=== PATIENT | male | born 1955 | race Caucasian/White ===

== ENCOUNTER 2020-03-03 10:15 | Day surgery (SDC) | payer MEDICARE ==
[~2020-03-03 10:15] MED LIST: PERCOCET 10/31 COMBO PO; TRAMADOL HCL50 MG PO
[2020-03-03 10:49] LABS: HEMOGLOBIN 14.5 g/dl (14.0-18.0); IMMATURE GRANULOCYTES 0.3 % (0.0-5.0); MEAN CORPUSCULAR HGB 29.7 pG CALC (26.0-32.0); MEAN CORPUSCULAR HGB CONC 32.2 g/dL CAL (32.0-36.0); NEUT# 3.47 thou/uL (1.82-7.42); RED BLOOD COUNT 4.89 mill/uL (4.70-6.10)
[2020-03-03 11:10] LABS: ALBUMIN 4.5 g/dL (3.2-5.0); ALKALINE PHOSPHATASE 140 u/l (38-126); ANION GAP 11 (6-22 (CALC)); BILIRUBIN, TOTAL 0.6 mg/dL (0.0-1.4); BUN 13 mg/dL (8-23); BUN/CREATININE RATIO 19 (12-20 (CALC)); CARBON DIOXIDE 28 mmol/l (22-30); CHLORIDE 102 mmol/l (95-108); CREATININE 0.7 mg/dL (0.7-1.3); GFR > 60 ML/MIN (>=60 (CALC)); GFR FOR AFR.AMER. > 60 ML/MIN (>=60 (CALC)); POTASSIUM 4.3 mmol/l (3.5-5.1); SGOT/AST 36 u/l (19-48); SODIUM 137 mmol/l (137-146); TOTAL PROTEIN 8.9 g/dL (6.3-8.2)
[2020-03-03] MEDS ORDERED: KEFLEX500 M1 PO (14:07)
[2020-03-03 14:46] VITALS: BP 152/82
== END 2020-03-03 15:01 | disposition home or self-care (01) ==
LOC: ORM 10:15
PROVIDERS: Nurse Anesthetist, Certified Registered; ATTEND Podiatrist Foot & Ankle Surgery
PROC: 0SBG4ZZ Excision of Left Ankle Joint, Percutaneous Endoscopic Approach (ICD-10-PCS; principal; 2020-03-03)
PROC: 3E0T3BZ Introduction of Anesthetic Agent into Peripheral Nerves and Plexi, Percutaneous Approach (ICD-10-PCS; 2020-03-03)
DX: M86.662 Other chronic osteomyelitis, left tibia and fibula (principal); M86.672 Other chronic osteomyelitis, left ankle and foot; M65.872 Other synovitis and tenosynovitis, left ankle and foot; Z20.828 Contact with and (suspected) exposure to other viral communicable diseases